=== PATIENT | female | born 1960 | race Caucasian/White ===

== ENCOUNTER → 2016-11-29 | Outpatient (CLI) | payer OTHER ==
[~2016-11-29] MED LIST: DECADRON4 MG PO; KEPPRA500 MG PO; PRILOSEC20 MG PO
== END | disposition disaster alternative care site (69) ==
LOC: GRAD 07:45 → GLAB 08:00
PROVIDERS: Registered Nurse Medical-Surgical
DX: C50.911 Malignant neoplasm of unspecified site of right female breast (principal); Z90.11 Acquired absence of right breast and nipple; Z98.82 Breast implant status; K59.00 Constipation, unspecified; N64.2 Atrophy of breast

== ENCOUNTER → 2016-12-29 | Outpatient (CLI) | payer OTHER | END | disposition disaster alternative care site (69) | LOC: GRAD 10:33 | DX: C79.9 Secondary malignant neoplasm of unspecified site (principal); G93.9 Disorder of brain, unspecified ==

== ENCOUNTER 2017-01-03 15:00 | Inpatient (IN) | payer OTHER ==
[~2017-01-03] VITALS: Ht 167.6 cm; Wt 57.4 kg
--- NOTE | ~2017-01-03 | FOL ---
PATIENT'S NAME: CASSI SNOWDEN [facility] AGE: 56 Y [address] ROOM: [id number] [place] [address] LOCATION: GICU ADMIT DATE: 01/04/2017 Oncology Report DISCHARGE DATE: FAMILY PHYSICIAN: Shyanne Navarro APRN ATTENDING PHYSICIAN: Mari Subramanian RADIATION THERAPY FOLLOWUP NOTE DATE OF SERVICE: 01/06/2017 BODY: Dear Doctor: Ms. Cassi Snowden was seen today while inpatient. As you recall, this is a 56-year-old white female with a known history of carcinoma of the breast. The patient recently had two lesions noted in the brain. Subsequently underwent scans and most recently has undergone surgery by Dr. Subramanian. 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 When seen today, the patient was doing well. She is an inpatient in the ICU. She is recovering from her surgery and appears to be doing well. She was alert and oriented. She indicated she was aware of why she was there, was doing well, and was doing some rehabilitation. PHYSICAL EXAMINATION: GENERAL: A well-developed thin white female, in no apparent distress. HEAD AND NECK: Status post recent biopsy. No areas of bleeding. No areas of infection noted. Oral cavity without masses or mycotic lesions. NEUROLOGIC: Alert and oriented x3 with cranial nerves grossly normal. Muscle strength is somewhat decreased particularly on the left. The patient was doing physical therapy when seen. LABORATORY DATA: The patient has undergone excisional biopsy of the lesions in the brain. Preliminary pathology is that of adenocarcinoma. We will await final pathology and thereafter, schedule the patient for a stereotactic radiosurgery. We thank you for allowing us to participate in her care. The patient will be scheduled for followup and scans with us. Sincerely, PATIENT'S NAME: CASSI SNOWDEN [facility] AGE: 56 Y [address] [id number] [address] LOCATION: GICU ADMIT DATE: 01/04/2017 Oncology Report DISCHARGE DATE: FAMILY PHYSICIAN: Shyanne Navarro APRN ATTENDING PHYSICIAN: Mari Subramanian FAY ENG MD, PHD FZL/modl /[id number] CC: MD Cassi Sterling MD Michelle Hunter, TMD TEACHER d: 01/06/17 1358 t: 01/14/17 1016, FOLLOW-UP NOTE
--- NOTE | ~2017-01-03 | OR ---
PATIENT'S NAME: CASSI SNOWDEN [facility] AGE: 56 Y [address] ROOM: [place] [address] LOCATION: [facility] ADMIT DATE: 01/04/2017 OR/Procedure Report DISCHARGE DATE: FAMILY PHYSICIAN: Shyanne Navarro APRN ATTENDING PHYSICIAN: Mari Michelle SURGEON: Mari Michelle MD PLANT PROTECTION GUARD: Shanelle Mancera. DATE OF PROCEDURE: 01/04/2017 PREOPERATIVE DIAGNOSIS: Metastatic brain tumor to left parietal and left occipital areas. POSTOPERATIVE DIAGNOSIS: Metastatic brain tumor to left parietal and left occipital areas. PROCEDURES PERFORMED: 1. Left parietal craniotomy and resection of tumor. 2. Left occipital craniotomy and resection of tumor. 3. Use of Stealth frameless stereotactic image guidance. ANESTHESIA: General. ANESTHESIA PROVIDER: Hipolito Palacios MD. HISTORY: This patient is a 56-year-old female who presented with a seizure. She has a previous history of breast cancer since 2014. The breast cancer was treated with mastectomy and she also had reconstructive surgery. She was doing well until the onset of a seizure which led to discovery of metastatic tumors in her brain. I was asked to provide definitive diagnosis by way of biopsy for radiation to proceed for the brain masses. The above procedure, benefits and risks were discussed with the patient and her and with their consent, the patient was brought to the operating room for surgery. The patient had had MRI of her brain with frameless stereotaxy to help with surgery planning. PROCEDURE IN DETAIL: In the operating room, the patient was placed in a supine position. Anesthesia was induced. She was intubated and Britt catheter was inserted. The patient was then turned to a lateral position with the left side up. Her head was secured in a 3-pin [place] head of history. The Stealth frameless stereotactic system was used to sinan out the surface markings of the tumor. The hair was clipped around this area. We marked out both the parietal and occipital masses. The incision lines were drawn out. The whole area was prepped and draped in a sterile fashion. Local anesthesia was infiltrated. PATIENT'S NAME: CASSI SNOWDEN [facility] AGE: 56 Y [address] ROOM: [place] [address] LOCATION: [facility] ADMIT DATE: 01/04/2017 OR/Procedure Report DISCHARGE DATE: FAMILY PHYSICIAN: Shyanne Navarro APRN ATTENDING PHYSICIAN: Mari Michelle A small craniotomy flap was turned in the parietal area and the dura was opened. Again using frameless stereotactic guidance, the tumor was identified. It was a soft pinkish moderately vascular mass. The mass was removed gradually using suction and coagulation. Some of the mass was removed en bloc by using the [place] instrument to go around it and separate it from the brain. There was some bleeding in the tumor bed which was brought under control using cotton balls and cottonoids. Attention was then directed to the occipital mass. Again, the incision was opened and a small craniotomy flap was turned taking care to avoid the transverse sinus which was right on the edge of the tumor. With frameless stereotactic guidance, the tumor was identified. It was actually attached to the undersurface of the dura and once the dura was opened up, the tumor was seen. Working carefully around the tumor edge, the mass was excised almost en bloc. Hemostasis was achieved. The dura was closed. The bone flap was replaced. A series of holes were drilled around the edge of the bone flap and matching holes were drilled around the craniotomy edge and using these holes, sutures were passed through from bone flap to craniotomy edge tying the bone flap back. The same procedure was done for the parietal area. The dura was closed and the bone flap was reattached. Both incisions were closed in layers using appropriate suture materials. Sterile dressing was applied. The patient's head was taken out of the [place] head of history. Her anesthesia was reversed. She was extubated and taken to the recovery room to complete her recovery. I was present at and performed every aspect of this procedure, assisted at some stages by operating room nurses. There were no apparent intraoperative complications. Swabs, needles, and instruments were all accounted for at the end of the case. Estimated blood loss was less than 300 mL. There was no reason for blood transfusion. Hopefully, the seizure will provide definitive diagnosis of metastatic brain tumor and allow for the patient's treatment to commence. MARI MICHELLE MD CNO/modl PATIENT'S NAME: CASSI SNOWDEN [facility] AGE: 56 Y [address] ROOM: [address] [address] LOCATION: [facility] ADMIT DATE: 01/04/2017 OR/Procedure Report DISCHARGE DATE: FAMILY PHYSICIAN: Shyanne Navarro APRN ATTENDING PHYSICIAN: Mari Michelle /[id number] d: 01/06/17 1006 t: 01/09/17 0731, OPERATIVE SUMMARY
--- NOTE | ~2017-01-03 | OR ---
PATIENT'S NAME: CASSI SNOWDEN [facility] AGE: 56 Y [address] ROOM: [place] [address] LOCATION: GICU ADMIT DATE: 01/04/2017 OR/Procedure Report DISCHARGE DATE: FAMILY PHYSICIAN: Shyanne Navarro APRN ATTENDING PHYSICIAN: Mari Subramanian SURGEON: Hipolito Palacios MD MACHINE SLAT BASKET MAKER: DATE OF PROCEDURE: 01/04/2017 PROCEDURES PERFORMED: 1. Right internal jugular vein central venous catheter. 2. Left radial arterial line. INDICATIONS: The patient is undergoing craniotomy with removal of mass. Need for central venous access, [id number] pressure monitoring, volume assessment, and vasopressor use. PROCEDURE #1: After induction of general anesthesia, the patient was lying supine in operating room table in slight Trendelenburg position. The neck was prepped with chlorhexidine 2%. Maximal sterile barriers worn all times. Ultrasound was used to visualize the internal jugular vein. With a single stick, dark nonpulsatile blood was found on return, wire was threaded easily, and the ultrasound was used to visualize the wire in the internal jugular vein. Skin nicked, dilated, and 8.5-Mosotho 16 cm catheter was placed over the wire and wire removed. All ports withdrew, blood flushed easily, and was sutured into place. Sterile dressing applied on top. Chest x-ray ordered in recovery. COMPLICATIONS: None. BLOOD LOSS: None. PROCEDURE #2: Next, the left arm was extended out about 90 degrees. Radial artery was easily palpated. The area was cleaned with 2% chlorhexidine and a 20-gauge Arrow catheter, using Seldinger technique, was placed. With a single stick, bright red pulsatile blood was found. Catheter was placed without difficulty and secured into place. BLOOD LOSS: None. COMPLICATIONS: None. PATIENT'S NAME: CASSI SNOWDEN [facility] AGE: 56 Y [address] ROOM: [place] [address] LOCATION: GICU ADMIT DATE: 01/04/2017 OR/Procedure Report DISCHARGE DATE: FAMILY PHYSICIAN: Shyanne Navarro APRN ATTENDING PHYSICIAN: Mari Subramanian MD JJP/modl /[id number] d: 01/04/17 2247 t: 01/10/17 1242, OPERATIVE SUMMARY
--- NOTE | ~2017-01-03 | CON ---
PATIENT'S NAME: CASSI SNOWDEN [facility] AGE: 56 Y [address] ROOM: [place] [address] LOCATION: GICU ADMIT DATE: 01/04/2017 Consultation DISCHARGE DATE: FAMILY PHYSICIAN: Shyanne Navarro APRN ATTENDING PHYSICIAN: Mari Subramanian DATE OF CONSULTATION: 01/05/2017 REFERRING PHYSICIAN: Cassi Coreas MD CARDIOLOGY CONSULTATION REASON FOR CARDIOLOGY CONSULTATION: New heart block with bradycardia. HISTORY OF PRESENT ILLNESS: This is a 56-year-old female, who presents to [facility] for a scheduled resection of posterior occipital and temporal masses. She has a previous history of breast cancer in 2015, underwent chemotherapy and radiation as well as a right-sided mastectomy. She has no previous history of coronary artery disease, hypertension, or arrhythmia. Her family history is positive with mother noted for history of CHF and a father with a history of myocardial infarction x3 different events. She is rather drowsy this a.m., but she denies any pain. She overall denies chest pain, shortness of breath, chest pressure, or palpitations. She denies any symptoms at this time as well as previous history review. Overnight, she appears to have converted to a Mobitz type 2 heart block with the heart rate in the 50s. She hemodynamically was stable during the arrhythmia and has no recollection of symptoms during it. She also denies nausea or vomiting as well as changes in bowel or bladder. PAST MEDICAL HISTORY: As listed in the HPI as well as migraine headaches. PAST SURGICAL HISTORY: 1. As listed in the HPI as well as tonsillectomy. 2. Left-sided chest port placement. 3. Breast reconstruction. SOCIAL HISTORY: The patient denies ever using tobacco. She also denies alcohol or illicit drug use. CURRENT MEDICATIONS: 1. Decadron 4 mg p.o. 3 times daily. 2. Keppra 500 mg p.o. twice daily. PATIENT'S NAME: CASSI SNOWDEN [facility] AGE: 56 Y [address] ROOM: [place] [address] LOCATION: GICU ADMIT DATE: 01/04/2017 Consultation DISCHARGE DATE: FAMILY PHYSICIAN: Shyanne Navarro APRN ATTENDING PHYSICIAN: Mari Subramanian 3. Protonix 20 mg p.o. daily. MEDICATION ALLERGIES: Cefazolin causing rash. REVIEW OF SYSTEMS: Pertinent positive review of systems are listed in the HPI. All other review of systems evaluated and negative. DIAGNOSTICS: [facility] evaluation shows a sodium of 131, potassium 3.6, BUN of 18, creatinine of 0.6, glucose of 117, magnesium of 2.0, and a TSH of 1.18. PHYSICAL EXAMINATION: VITAL SIGNS: Temperature 98.2, pulse 63, respirations 24, blood pressure 155/83, and O2 saturation 96% on room air. The patient weighs 58.3 kg. SKIN: [place], warm, and dry. EYES: Sclerae clear. No xanthelasmas. ENT: Oral mucosa is pink and moist. No jugular venous distention. No carotid bruits. CHEST: Respirations are even and unlabored. LUNGS: Clear to auscultation. HEART: Regular rate and rhythm. Normal S1 and S2. No murmurs, rubs, or gallops. ABDOMEN: Soft and nontender. MUSCULOSKELETAL: Equal muscle strength to upper and lower extremities bilaterally against resistance. EXTREMITIES: Peripheral pulses palpable. No clubbing, cyanosis, or edema. PSYCHIATRIC: Alert and oriented. Mood and affect are appropriate. IMPRESSION AND PLAN: Per Dr. Rosales: 1. Intermittent Mobitz type 2 heart block. She was asymptomatic during the event, and is currently back into a normal sinus rhythm. She has no complaints of angina. She also has no signs and symptoms of acute decompensation. The patient has a negative carotid massage as currently not in favor of a pacemaker at this time. We will check an echocardiogram to fully evaluate her ejection fraction as well as to look for wall motion or valvular abnormalities. We will also check a 12-lead EKG to fully evaluate ST changes. 2. Status post posterior occipital and temporal masses removal. 3. History of breast cancer. We will continue to monitor, evaluate, and treat as appropriate. Thank you for this consult. Thank you for allowing [facility] to interact in the care of this patient. PATIENT'S NAME: CASSI SNOWDEN [facility] AGE: 56 Y [address] ROOM: [place] [address] LOCATION: [facility] ADMIT DATE: 01/04/2017 Consultation DISCHARGE DATE: FAMILY PHYSICIAN: Shyanne Navarro APRN ATTENDING PHYSICIAN: Mari Subramanian N KATHERINE CASE APRN FOR MD RITCHIE BRUSH/modl /[id number] d: 01/05/17 2248 t: 01/11/17 0923, CONSULTATION REPORT
--- NOTE | ~2017-01-03 | CON ---
[facility] 56 [facility] [address] ROOM: [place] [address] LOCATION: [facility] ADMIT DATE: 01/04/2017 Consultation DISCHARGE DATE: FAMILY PHYSICIAN: Shyanne Navarro APRN ATTENDING PHYSICIAN: Mari Subramanian DATE OF CONSULTATION: 01/05/2017 REQUESTING PHYSICIAN: Mari Subramanian MD. REASON FOR CONSULTATION: Telemetry abnormalities. HISTORY OF PRESENT ILLNESS: The patient is a previously healthy 56-year-old female who is postop day 1 for resection of posterior occipital mass. The patient denies any past medical or surgical history. She was noted to have P waves without a conducting QRS complex on her EKG and a consult was requested. At this point, the patient is asymptomatic in regard to palpitations, chest pain, or near syncope. She is resting in bed in the intensive care unit, undergoing q.1 hour neuro checks after her surgery. REVIEW OF SYSTEMS: All 10 systems have been reviewed and are negative except pertinent positives mentioned above. PAST MEDICAL HISTORY: The patient denies. PAST SURGICAL HISTORY: The patient denies. MEDICATIONS: The patient denies. SOCIAL HISTORY: The patient denies any toxic habits. FAMILY HISTORY: The patient denies any pertinent family history. PHYSICAL EXAMINATION: PATIENT'S NAME: CASSI SNOWDEN [facility] AGE: 56 Y [address] ROOM: [place] [address] LOCATION: [facility] ADMIT DATE: 01/04/2017 Consultation DISCHARGE DATE: FAMILY PHYSICIAN: Shyanne Navarro APRN ATTENDING PHYSICIAN: Mari Subramanian VITAL SIGNS: Temperature 97.7, pulse 57, respirations 18, blood pressure 159/80, and saturating 98% on room air. GENERAL: Appears as a well-developed, well-nourished, middle-aged female, in no acute distress. NEUROLOGIC: Deferred. HEENT: Eyes: Pupils are equal and reactive to light. LYMPHATIC: No cervical lymphadenopathy. ENDOCRINE: No thyromegaly. LUNGS: Clear to auscultation. HEART: Bradycardic and regular with no appreciable murmurs, gallops, or rubs. ABDOMEN: Soft, nontender, and nondistended. : No costovertebral angle tenderness. VASCULAR: 2+ pedal pulses. MUSCULOSKELETAL: No muscle or joint abnormalities: SKIN: Warm and dry. DIAGNOSTIC DATA: Review of the telemetry strips does reveal several strips with a nonconducting P wave favoring second-degree type 2 atrioventricular block; however, the series of P/QRS complexes that followed a nonconducting block do demonstrate a prolonged OR interval which is not present in the blocked instances. This could be more consistent with Wenckebach. No lab studies are available. IMPRESSION AND RECOMMENDATIONS: This is a 56-year-old female who is postop day 1 for resection of a brain mass. At this point, she seems to be having asymptomatic intermittent second- degree AV block. It is unclear to me if this is a Mobitz or Wenckebach. We will check her electrolytes in the morning. We will request a Cardiology evaluation. We will also get a 2-dimensional echocardiogram. Review of her preoperative EKG appears as normal sinus rhythm at 60 beats per minute. Additional management will depend on her clinical course. We will follow the patient with you. Thank you for allowing us to participate in the care of this woman. Time dedicated to this patient's encounter is 15 minutes. SHOSHANA MONROE MD PATIENT'S NAME: CASSI SNOWDEN [facility] AGE: 56 Y [address] ROOM: [place] [address] LOCATION: [facility] ADMIT DATE: 01/04/2017 Consultation DISCHARGE DATE: FAMILY PHYSICIAN: Shyanne Navarro APRN ATTENDING PHYSICIAN: Mari Subramanian/yasmine /[id number] d: 01/05/17 0350 t: 01/20/17 0743, CONSULTATION REPORT
--- NOTE | ~2017-01-03 | DS ---
PATIENT'S NAME: CASSI SNOWDEN [facility] AGE: 56 Y [address] ROOM: [address] [address] LOCATION: [facility] ADMIT DATE: 01/04/2017 Discharge Summary DISCHARGE DATE: 01/08/2017 FAMILY PHYSICIAN: Shyanne Navarro APRN ATTENDING PHYSICIAN: Mari Subramanian REASON FOR ADMISSION: The patient was a scheduled admission for an elective procedure. The patient had suffered a seizure and was found to have 2 masses in her left brain. The question was whether these masses were metastatic tumors or not given the patient's history of previous breast cancer. TREATMENT RENDERED: On the day of admission, the patient was taken to the operating room and underwent image-guided resection of left parietal and left occipital tumors. The surgery was uneventful. Postoperatively, the patient experienced some difficulty with speech for the first day or two and expected postoperative pain. Eventually, her pain subsided and her speech came back. She was well enough to go home and was discharged on January 08, 2017. At the time of discharge, she was ambulating independently. Her incisions were healing well. She was also seen by Oncology for further treatment planning. FINAL DIAGNOSIS: Metastatic brain tumor to left parietal and left occipital regions, status post craniotomy and resection of the same. MD FREDA JIANGO/modl /[id number] d: 01/22/17 0146 t: 01/22/172000, DISCHARGE SUMMARY
--- NOTE | ~2017-01-03 | ECHO ---
Transthoracic Echocardiography Report (TTE) Demographics Patient Name CASSI SNOWDEN Date of Study 01/05/2017 E Patient Number [id number] Visit Number [id number] Date of 1960 Room Number [id number] Gender Female Number Age 56 year(s) Referring Ramon Kimble Starting Gate Driver Tory Tubbs [facility] Physician Saqib Kaur Physician Interpreting Connie Fernando Impregnator Helper Physician Marlena HALE Supervising Ordering Ro Barrera MD/VERNON Physician Nurse Stress Engine Cowling Installer Conclusions Contractility Score Summary Normal Left Ventricular contractility was noted. Summary The estimated left ventricular ejection fraction is 55%. The left ventricle is normal in size . Diastolic assessment reveals Grade II pseudonormal diastolic function . No significant valvular abnormalities. Procedure Type of Study TTE procedure:2D Echocardiogram. Procedure Date Date: 01/05/2017 Start: 07:21 AM Study Location: Inpatient Portable Technical Quality: Fair due to body habitus. Indications:AV Block 2:1. Appropriate Use Criteria: 8 Patient Status: Routine HR: 60 bpm BP: 128/68 mmHg M-Mode/2D Measurements LV Diastolic Dimension: 3.72 cm LV Systolic Dimension: 2.59 cm LV Septum Diastolic: 0.89 cm LV PW Diastolic: 0.85 cm AO Root Dimension: 2.8 cm Cardiac Output: 2.7 l/min LA Dimension: 2 cm LVOT: 1.9 cm LVOT VTI: 15.9 cm RV Base: 3.24 cm LV Stroke volume: 45.06 ml RV Length: 4.95 cm TAPSE: 2.54 cm TDI-S': 15.2 cm/s Doppler Measurements AV Peak Velocity: 1.13 m/s MV Peak E-Wave: 0.92 m/s AV Peak Gradient: 5.11 mmHg MV Peak A-Wave: 0.84 m/s AV Mean Gradient: 3 mmHg MV E/A Ratio: 1.09 LVOT Peak Velocity: 0.84 m/s MV P1/2t: 81 msec TR Gradient:15.84 mmHg PV Peak Velocity: 0.84 m/s Estimated RAP:3 mmHg PV Peak Gradient: 2.84 mmHg Estimated RVSP: 19 mmHg Estimated PASP: 18.84 mmHg E' Septal Velocity: 0.09 m/s A' Septal Velocity: 0.11 m/s E' Lateral Velocity: 0.06 m/s A' Lateral Velocity: 0.11 m/s Findings Left Ventricle The left ventricle is normal in size . Diastolic assessment reveals Grade II pseudonormal diastolic function . Right Ventricle Normal right ventricle structure and function. Left Atrium Normal left atrial size. Right Atrium Normal right atrial size. IVC measures 1.51 cm with inspiratory collapse. Mitral Valve Trivial mitral regurgitation by color Doppler. Borderline prolapse of the mitral valve. Aortic Valve Normal aortic valve structure and function. Tricuspid Valve Trivial tricuspid regurgitation by color Doppler. Pulmonic Valve Trivial pulmonic valve regurgitation by color Doppler. Pericardial Effusion No evidence of pericardial effusion. Miscellaneous Visualized portions of the aortic root and ascending aorta appear normal in size. Pleural Effusion No evidence of pleural effusion. Contractility Score LV regional wall motion:(0-Non visualized 1-Normal 2-Hypokinesis 3-Akinesis 4-Dyskinesis 5-Aneurysm) Signature dtt: Omer Rosales dtd: 01/05/17 0721 Physician Self Edit
[2017-01-04 11:09] LABS: INR - (THERAPEUTIC) 0.92 (0.92-1.07); PROTIME 9.7 SECONDS (9.8-11.4)
[2017-01-05 04:16] LABS: ANION GAP 12.6 (10.0-19.0); BLOOD UREA NITROGEN 18 mg/dL (6-24); CALCIUM 7.8 mg/dL (8.5-10.5); CHLORIDE 98 mMol/L (96-110); CO2 24 mMol/L (22-32); CREATININE 0.6 mg/dL (0.5-1.1); ESTIMATED GFR (MDRD EQUATION) > 60; POTASSIUM 3.6 mMol/L (3.7-5.1); SODIUM 131 mMol/L (135-145)
== END 2017-01-08 13:20 | disposition disaster alternative care site (69) | DRG 27 ==
LOC: GICU 01-04 10:20 → GNTU 01-06 17:46
PROVIDERS: Internal Medicine; ADMIT Neurological Surgery
PROC: 00B00ZX Excision of Brain, Open Approach, Diagnostic (ICD-10-PCS; principal; 2017-01-04)
PROC: 05HM33Z Insertion of Infusion Device into Right Internal Jugular Vein, Percutaneous Approach (ICD-10-PCS; 2017-01-04)
PROC: B543ZZA Ultrasonography of Right Jugular Veins, Guidance (ICD-10-PCS; 2017-01-04)
DX: C79.31 Secondary malignant neoplasm of brain (principal); I44.1 Atrioventricular block, second degree; Z85.3 Personal history of malignant neoplasm of breast; Z92.3 Personal history of irradiation; Z92.21 Personal history of antineoplastic chemotherapy; Z90.11 Acquired absence of right breast and nipple
CPT/HCPCS: A9577; C1763; J1100; J1953; J2270; J2405; J2765; J3010; J3370; J7030

== ENCOUNTER → 2017-01-18 | Outpatient (CLI) | payer OTHER | END | disposition disaster alternative care site (69) | LOC: GRAD 08:18 | DX: C79.31 Secondary malignant neoplasm of brain (principal); C50.911 Malignant neoplasm of unspecified site of right female breast; G93.9 Disorder of brain, unspecified | CPT/HCPCS: A9577 ==